=== PATIENT | male | born 1965 | race Caucasian/White ===

== ENCOUNTER 2025-05-22 08:49 | Outpatient (REF) | payer OTHER, SELFPAY ==
[2025-05-22 14:49] LABS: Appearance Urine Clear; Glucose Urine UA Negative (Negative); PH 6.5 (5.0-9.0); Specific Gravity - Urine 1.020 (1.005-1.025)
[2025-05-22 14:56] LABS: MANUAL DIFF FLAG NO
[2025-05-22 15:02] LABS: Hematocrit 46.8 % (42.0-52.0); Hemoglobin 16.0 g/dl (14.0-18.0); Imm Gran Abs Auto 0.04 X10*3/uL (0.00-0.03); Imm Gran Pct Auto 0.6 % (0.0-0.4); Lymphocytes Absolute Auto 1.5 X10*3/uL (1.2-4.9); Mean Corpuscular HGB Conc 34.2 g/dl (31.0-36.0); Mean Corpuscular Hemoglobin 31.6 pg (27.0-33.0); Mean Corpuscular Volume 92.5 fL (80.0-98.0); NRBC Abs Auto 0.000 X10*3/uL (0.0-0.012); NRBC Pct Auto 0.0 /100WBC (0.0-0.2); Platelet Count 245 X10*3/uL (160-400); Red Blood Count 5.06 X10*6/uL (4.60-5.80); White Blood Count 6.4 X10*3/uL (4.8-10.8)
[2025-05-22 15:23] LABS: Alanine Aminotransferase 41 U/L (0-40); Albumin Level 4.9 g/dL (3.5-5.0); Alkaline Phosphatase 82 U/L (39-117); Anion Gap 9 (12-20); Aspartate Amino Transferase 30 U/L (5-37); Blood Urea Nitrogen 17 mg/dL (9-16); Calcium 9.3 mg/dL (8.4-10.2); Carbon Dioxide 28 mmol/L (22-29); Chloride 108 mmol/L (96-108); Cholesterol 263 mg/dL (<200); Estimated Glomerular Filt Rate > 60; HDL Cholesterol 51 mg/dL (>40); Iron 111 mcg/dL (45-160); Magnesium 2.4 mg/dL (1.6-2.6); Percent Iron Saturation 39 % (15-50); Potassium 4.4 mmol/L (3.3-5.1); Sodium 141 mmol/L (135-145); Total Iron Binding Capacity 285 mcg/dL (228-428); Total Protein 7.2 g/dL (6.5-8.0); Triglycerides 131 mg/dL (<150); Unsaturated Iron Binding 174 ug/dL
[2025-05-22 15:30] LABS: Microalbum/Creatinine Ratio Ur 6.3 ug/mg cr (<30)
[2025-05-22 15:40] LABS: Ferritin 355 ng/mL (20-250)
[2025-05-22 15:49] LABS: Folate 8.6 ng/mL (> or = 4.0); Vitamin B12 721 pg/mL (200-900)
[2025-05-27 17:24] LABS: Testosterone, Free 31.7 pg/mL (35.0-155.0)
== END 2025-05-22 08:50 | disposition home or self-care (01) ==
LOC: HO.WFDLDS 08:49
PROVIDERS: PCP Physician Assistant; Visit Provider Physician Assistant
DX: Z01.89 Encounter for other specified special examinations (principal); E66.9 Obesity, unspecified; R68.82 Decreased libido; R06.83 Snoring; R53.83 Other fatigue; Z12.5 Encounter for screening for malignant neoplasm of prostate; Z68.30 Body mass index [BMI] 30.0-30.9, adult
CPT/HCPCS: 36415; 80053; 80061; 81003; 82043; 82570; 82607; 82728; 82746; 83036; 83540; 83735; 84153; 84402; 84403; 84443; 85025; 96127

== ENCOUNTER 2025-05-22 08:49 | Outpatient (AMB) | payer OTHER, SELFPAY ==
--- NOTE | 2025-05-22 09:04 | MHC.PC.OV ---
Vital Signs 05/22/25 09:06 Height 6 ft Weight 226 lb BMI 30.6 BP 136/84 Blood Pressure Location Rt brachial Position Sitting Respiration 14 Pulse 74 Pulse Source Pulse Oximeter Temp 97.9 F Temp Source Oral Pulse Oximetry (%) 97 Oxygen Delivery Method Room Air Intake Visit Reasons: CPE? Allergies [place] Allergy (Severe, Verified 05/22/25 09:04) throat closes Medication List - Last Reconciled 05/22/25 by Hilary Francisco PA-C No Known Home Meds Tobacco use date assessed: 05/22/25 Dental Screening Dental Screen Date: 05/22/25 Did you have a dental visit in the last 12 months?: Yes Did you have a dental problem in the last 6 months where you did not have access to dental care?: No Was dental information given to patient?: Patient has dentist HPI CPE? HPI Details Patient is a 59-year-old male who presents today to [facility]. He is transferring from [facility]. He denies any significant past medical history. General: He does endorse fatigue and reduced libido but reports his job is high stress and he does not sleep as many hours as he should. He works from 05:00 to 17:00 and often is not able to go to sleep until after 10-11 p.m.. His does report that he snores a lot and he has had witnessed apnea. He is interested zepbound. He states that he used to have more energy to work out but right now with his current job it is difficult. CV: Blood pressure today in the office is 136/84. Colonoscopy: Up-to-date, due in 2 years PSA: Overdue [facility] Social History Housing: House Patient Tobacco Use Status: Never used Tobacco e-Cigarette/Vaping Use: Never Used Second Hand Smoke Exposure: No service: No Current occupational status: employed Current occupation: [employer] Current occupational exposures/hazards: Yes (machine shop) Cognitive needs: No Hearing needs: No Vision needs: No Questionnaire PHQ-9 Over the last 2 weeks, how often have you been bothered by any of the following problems? 1. Little interest or pleasure in doing things: not at all 2. Feeling down, depressed, or hopeless: not at all 3. Trouble falling or staying asleep, or sleeping too much: not at all 4. Feeling tired or having little energy: not at all 5. Poor appetite or overeating: not at all 6. Feeling bad about yourself - or that you are a failure or have let yourself or your family down: not at all 7. Trouble concentrating on things, such as reading the newspaper or watching television: not at all 8. Moving or speaking so slowly that other people could have noticed. Or the opposite - being so fidgety or restless that you have been moving around a lot more than usual: not at all 9. Thoughts that you would be better off or of hurting yourself in some way: not at all Total score: 0 Source: Developed by Drs. Kobe Spaulding, Linda Daly, Cipriano White and colleagues, with an educational chikis from [employer]. Thrive Questionnaire I am a: Patient What is your living situation today?: I have a steady place to live Within the past 12 months, did the food you bought not last and you didn't have the money to get more?: Never true Within the past 12 months, did you worry whether your food would run out before you got money to buy more?: Never true Do you have trouble paying for medicines?: No Do you have trouble getting transportation to medical appointments?: No Do you have trouble paying your heating and electricity bill?: No Do you have trouble taking care of your child, family member or friend?: No Do you have trouble with day-to-day activities such as bathing, preparing meals, shopping, managing finances, etc.?: No Are you currently unemployed and looking for a job?: No Are you interested in more education?: No Please select the resources that you would like help with: None Currently or been in a relationship where the following occur: No concerns reported THRIVE Score: 0 AUDIT C Alcohol Use Questionnaire (AUDIT-C) 1. How often do you have a drink containing alcohol?: 2-4 times a month 2. How many drinks containing alcohol do you have on a typical day when you are drinking?: 1 or 2 3. How often do you have six or more drinks on one occasion?: Never Total Score: 2 SHANDRA-7 AMB Questionnaire SHANDRA-7 Feeling nervous, anxious, or on edge: 0 = Not at all Not being able to stop or control worryin = Not at all Worrying too much about different things: 0 = Not at all Trouble relaxin = Not at all Being so restless that it is hard to sit still: 0 = Not at all Becoming easily annoyed or irritable: 0 = Not at all Feeling afraid as if something awful might happen: 0 = Not at all Total SHANDRA-7 score (0-4 normal; 5-9 mild; 10-14 moderate; 15-21 severe): 0 Source: Developed by Drs. Kobe Spaulding, Linda Daly, Cipriano White and colleagues, with an educational chikis from [employer]. Physical exam (Primary Care) Vital Signs: Last Vital Signs Temp 97.9 F 05/22/25 09:06 Pulse 74 05/22/25 09:06 Resp 14 05/22/25 09:06 BP 136/84 05/22/25 09:06 Pulse Ox 97 05/22/25 09:06 Oxygen Delivery Method Room Air 05/22/25 09:06 BMI result Body Mass Index 30.6 Tobacco/Smoking Status: Tobacco use Status Tobacco use date assessed 05/22/25 05/22/25 09:08 Patient Tobacco Use Status Never used Tobacco 05/22/25 09:08 e-Cigarette/Vaping Use Never Used 05/22/25 09:08 PHQ-9: PHQ-9 Score PHQ-9: Total score 0 05/22/25 09:24 Currently or been in a relationship where the following occur: No concerns reported Const Orientation/consciousness: patient oriented x3 HENMT Ears: hearing grossly normal bilaterally and TM's normal bilaterally General nose exam: No nasal polyps present Face and sinus: Yes sinuses nontender Mouth: Normal oral and palatal mucosa present Eyes Pupils: Equal, round and reactive pupils present EOM: EOMs intact bilaterally Neck Neck: Yes full ROM and Yes no lymphadenopathy Thyroid: Thyroid normal Chest Chest palpation & inspection: normal inspection of the chest Resp Auscultation: clear to auscultation bilaterally Cardio Rate: regular rate Rhythm: regular rhythm Heart sounds: S1 normal heart sound present and S2 normal heart sound present Peripheral pulses: Peripheral pulses 2+ throughout GI Other: Soft, nontender Auscultation: normal bowel sounds Rectal Exam - Male: Yes deferred General: Yes no CVA tenderness Back/Spine/Pelvis Other: Nontender Back: no CVA tenderness Skin General skin exam: no rashes or lesions noted Neuro General: patient oriented x3, gait normal, CN's II-XI intact bilaterally and deep tendon reflexes 2+ bilaterally Cranial nerves: Yes Equal, round and reactive pupils present Motor exam (neuro): 5/5 motor strength present throughout Sensory Exam: double simultaneous stimulation for sensation normal Coordination: [id number] test normal and Romberg test negative Extrem General: Yes normal to inspection and Yes full ROM Psych Affect: normal affect Attitude: cooperative Thought process: Normal thought process present Thought content: Normal thought content present Insight: Good insight present (Psych) Judgement: Good judgement present (Psych) Coding Level of Care Code New Pt Level 3 (74895) New Pt Prev Care 40-64y(02618) Diagnoses Routine general medical examination at a health care facility Z00.00 Obesity E66.9 Fatigue R53.83 Decreased libido R68.82 Snoring R06.83 Assessment & Plan Assessment & Plan (1) Routine general medical examination at a health care facility: Code(s): Z00.00 - Encounter for general adult medical examination without abnormal findings Plan: reviewed labs ordered sleep study ordered declines immunization (2) Obesity: Code(s): E66.9 - Obesity, unspecified Category: Medical Plan: We will start that bound. Discussed risks and benefits and adverse effects of the medication given that he is paying [id number] advised to use half of the dose as I sent him in the 5 mg. I did write this out for him and he tells me that he will not be confused at all with this dosing. Advised to contact me if he has any nausea, vomiting, diarrhea or constipation. Labs ordered today (3) Fatigue: Code(s): R53.83 - Other fatigue Category: Medical Plan: As above. Labs ordered (4) Decreased libido: Code(s): R68.82 - Decreased libido Category: Medical Plan: As above (5) Snoring: Code(s): R06.83 - Snoring Category: Medical Plan: Sleep study ordered We will follow up pending test results. Orders: Orders Testosterone, Free/Total Today E66.9 - Obesity, unspecified, R06.83 - Snoring, R53.83 - Other fatigue, R68.82 - Decreased libido Comprehensive [place]. Panel Fast Today E66.9 - Obesity, unspecified, R06.83 - Snoring, R53.83 - Other fatigue, R68.82 - Decreased libido Lipid Panel Today E66.9 - Obesity, unspecified, R06.83 - Snoring, R53.83 - Other fatigue, R68.82 - Decreased libido Prostate Specific Antigen Scr Today E66.9 - Obesity, unspecified, R06.83 - Snoring, R53.83 - Other fatigue, R68.82 - Decreased libido, Z01.89 - Encounter for other specified special examinations Hemoglobin A1c Today E66.9 - Obesity, unspecified, R06.83 - Snoring, R53.83 - Other fatigue, R68.82 - Decreased libido, R73.01 - Impaired fasting glucose Ferritin Today E66.9 - Obesity, unspecified, R06.83 - Snoring, R53.83 - Other fatigue, R68.82 - Decreased libido US soft tiss head and/or neck Today R22.1 - Localized swelling, mass and lump, neck TSH reflex Free T4 Today E66.9 - Obesity, unspecified, R06.83 - Snoring, R53.83 - Other fatigue, R68.82 - Decreased libido Complete Blood Count Auto Diff Today E66.9 - Obesity, unspecified, R06.83 - Snoring, R53.83 - Other fatigue, R68.82 - Decreased libido UA CC w/rflx Micro + Cult Today E66.9 - Obesity, unspecified, R06.83 - Snoring, R30.0 - Dysuria, R53.83 - Other fatigue, R68.82 - Decreased libido Microalbumin, Random (w Creat) Today E66.9 - Obesity, unspecified, R06.83 - Snoring, R53.83 - Other fatigue, R68.82 - Decreased libido Vitamin B12 and Folate Today E66.9 - Obesity, unspecified, R06.83 - Snoring, R53.83 - Other fatigue, R68.82 - Decreased libido Magnesium Today E66.9 - Obesity, unspecified, R06.83 - Snoring, R53.83 - Other fatigue, R68.82 - Decreased libido IRON PROFILE Today E66.9 - Obesity, unspecified, R06.83 - Snoring, R53.83 - Other fatigue, R68.82 - Decreased libido RT home sleep study Today R06.81 - Apnea, not elsewhere classified Medications: New tirzepatide (weight loss) (Zepbound) 5 mg (0.5 mL) subcut QWEEK 2 mL 1RF Patient Instructions: take only 0.25 ml of the zepbound vial. call me if issues
[2025-05-22 09:06] VITALS: BP 136/84; PULSE 74; RESP 14; TEMP 36.6; O2SAT 97; BMI 30.6
== END 2025-05-22 10:01 | disposition home or self-care (01) ==
LOC: HO.HMCFM 08:50
PROVIDERS: PCP Physician Assistant; Visit Provider Physician Assistant
DX: Z00.00 Encounter for general adult medical examination without abnormal findings (principal); E66.9 Obesity, unspecified; Z68.30 Body mass index [BMI] 30.0-30.9, adult; R53.83 Other fatigue; R06.83 Snoring; R68.82 Decreased libido